=== PATIENT | female | born 1960 | race Two or more races ===

== ENCOUNTER 2017-08-22 11:58 | Inpatient (IN) | payer BC, OTHER ==
[~2017-08-22] VITALS: Ht 165.1 cm; Wt 77.2 kg
[2017-08-22] MEDS ORDERED: ALBUTEROL SULF 2.5 MG/0.5ML(0.5%) NEB SOLN NEB ONE (12:15)
[2017-08-22] MEDS ORDERED: IPRATROPIUM BROM 0.5 MG/2.5ML INH SOL NEB ONE (12:15)
[2017-08-22] MEDS ORDERED: methylPREDNISolone SOD SUCC 125 MG/2 ML VL IV ONE ×2 (12:15)
[2017-08-22 13:33] LABS: Basophils # (auto) 0 uL; Basophils % (auto) 0.3 % (0.0-2.0); Eosinophils # (auto) 0.1 uL; Hematocrit 46.6 % (36.0-46.0); Hemoglobin 15.8 g/dL (12.2-16.2); Lymphocytes # (auto) 2.4 uL; Lymphocytes % (auto) 23.7 % (10.0-50.0); Mean Corpuscular Hemoglobin 31.3 pg (28.0-32.0); Mean Corpuscular Hgb Conc. 33.9 g/dL (32.0-36.0); Mean Corpuscular Volume 92.5 fL (80.0-100.0); Monocytes # (auto) 0.7 uL; Monocytes % (auto) 6.6 % (0.0-12.0); Neutrophils # (auto) 7.1 uL; Neutrophils % (auto) 68.4 % (37.0-80.0); Nucleated Red Blood Cells % 0.1 %; Platelet Count (auto) 172 10^3/uL (140-450); Red Blood Cells 5.03 10^6/uL (4.0-5.20); Red Cell Distribution Width 13.5 % (11.8-14.3); White Blood Cell 10.3 10^3/uL (4.4-10.8)
[2017-08-22 13:57] LABS: Alanine Aminotransferase 14 U/L (13-56); Albumin 3.9 g/dL (3.4-5.0); Alkaline Phosphatase 71 U/L (45-117); Anion Gap 6 (5-15); Aspartate Aminotransferase 11 U/L (15-37); Bilirubin, Total 0.5 mg/dL (0.2-1.0); Blood Urea Nitrogen 10 mg/dL (7-18); Calcium 9.2 mg/dL (8.5-10.1); Carbon Dioxide 29 mmol/L (21-32); Chloride 107 mmol/L (98-107); GFR African American 90 mL/min; GFR Non-African American 75 mL/min; Glucose 119 mg/dL (74-106); Magnesium 2.3 mg/dL (1.6-2.6); Potassium 3.6 mmol/L (3.5-5.1); Sodium 142 mmol/L (136-145); Total Protein 7.7 g/dL (6.4-8.2)
[2017-08-22 13:58] LABS: Lactic Acid w/Reflex 2.1 mmol/L (0.4-2.0)
[2017-08-22] MEDS ORDERED: ACETAMINOPHEN 500 MG TAB PO PRN (15:30)
[2017-08-22] MEDS ORDERED: NITROGLYCERIN 0.4 MG SL TAB SL PRN (15:30)
[2017-08-22] MEDS ORDERED: TEMAZEPAM 15 MG CAP PO PRN (15:30)
[2017-08-22] MEDS ORDERED: DOXYCYCLINE 100MG/250ML 250 ML IV SCH (15:30)
[2017-08-22] MEDS ORDERED: LORazepam 0.5 MG TAB PO PRN (15:30)
[2017-08-22] MEDS ORDERED: MORPHINE SULFATE 8mg/ml INJ SDV IV PRN ×2 (15:30)
[2017-08-22] MEDS ORDERED: HYDROcodone-ACET 5/325MG TAB PO PRN (15:30)
[2017-08-22] MEDS ORDERED: PROMETHAZINE HCL 25 MG/ML 1ML IV PRN (15:30)
[2017-08-22] MEDS ORDERED: ALBUTEROL SULF 2.5 MG/0.5ML(0.5%) NEB SOLN NEB PRN (15:30)
[2017-08-22] MEDS ORDERED: LACTULOSE 20Gm/30ML SOLN PO PRN (15:30)
[2017-08-22] MEDS: IPRATROPIUM BROM 0.5 MG/2.5ML INH SOL NEB SCH (18:45)
[2017-08-22] MEDS: ALBUTEROL SULF 2.5 MG/0.5ML(0.5%) NEB SOLN NEB SCH (18:45)
[2017-08-22] MEDS: SODIUM CHLORIDE 0.9% 1,000 ML IV SCH (20:37)
[2017-08-22] MEDS: methylPREDNISolone SOD SUCC 40 MG/ML VL IV SCH (20:37)
[2017-08-22 20:50] VITALS: BP 125/76
[2017-08-22 21:22] VITALS: BP 96/56
[2017-08-22 22:54] LABS: Urine Bacteria FEW /hpf (None Seen); Urine Blood TRACE /uL (Negative); Urine Mucus FEW (None Seen); Urine WBC 7 /hpf (0 - 5)
[2017-08-23] MEDS: methylPREDNISolone SOD SUCC 40 MG/ML VL IV SCH ×3 (00:11→11:04)
[2017-08-23] MEDS: ALBUTEROL SULF 2.5 MG/0.5ML(0.5%) NEB SOLN NEB SCH ×3 (00:30→11:43)
[2017-08-23] MEDS: IPRATROPIUM BROM 0.5 MG/2.5ML INH SOL NEB SCH ×3 (00:30→11:43)
[2017-08-23] MEDS: SODIUM CHLORIDE 0.9% 1,000 ML IV SCH (04:40)
[2017-08-23 05:19] VITALS: BP 106/71
[2017-08-23 08:00] VITALS: BP 97/58
[2017-08-23] MEDS ORDERED: DOXYCYCLINE 100MG/250ML 250 ML IV SCH (08:00)
[2017-08-23] MEDS ORDERED: ENOXAPARIN SOD 60 MG/0.6 ML SYRINGE SC SCH (10:00)
[2017-08-23 12:00] VITALS: BP 112/59
[2017-08-23 14:45] VITALS: BP 112/59
== END 2017-08-23 15:15 | disposition home or self-care (01) | DRG 192 ==
LOC: ER 12:09 → TELE 12:10 → TELE-WESTW 20:53
PROVIDERS: ADMIT Internal Medicine; ATTEND Internal Medicine
DX: J44.1 Chronic obstructive pulmonary disease with (acute) exacerbation (principal); R13.10 Dysphagia, unspecified; K59.00 Constipation, unspecified; G47.00 Insomnia, unspecified; F41.9 Anxiety disorder, unspecified; F17.210 Nicotine dependence, cigarettes, uncomplicated; Z82.49 Family history of ischemic heart disease and other diseases of the circulatory system; Z88.1 Allergy status to other antibiotic agents
CPT/HCPCS: 36415; 71046; 80053; 81001; 83605; 83735; 83880; 84484; 85025; 87040; 93005; 94640; 94761; 96365; 96375; J3490

== ENCOUNTER 2023-11-08 18:47 | Inpatient (IN) | payer OTHER, MEDICARE ==
[~2023-11-08] VITALS: Ht 160 cm; Wt 71.0 kg
[2023-11-08] MEDS: ALBUTEROL SULF 2.5 MG/0.5ML(0.5%) NEB SOLN NEB ONE (19:15)
[2023-11-08 19:36] LABS: Basophils # (auto) 0 10 ^3/uL (0-0.2); Basophils % (auto) 0.4 % (0.0-2.0); Eosinophils # (auto) 0 10 ^3/uL (0-0.8); Eosinophils % (auto) 0.1 % (0.0-7.0); Hematocrit 45.6 % (36.0-46.0); Hemoglobin 15.3 g/dL (12.2-16.2); Lymphocytes # (auto) 1.2 10 ^3/uL (0.4-5.4); Lymphocytes % (auto) 29.3 % (10.0-50.0); Mean Corpuscular Hemoglobin 31.3 pg (28.0-32.0); Mean Corpuscular Hgb Conc. 33.6 g/dL (32.0-36.0); Mean Corpuscular Volume 93.1 fL (80.0-100.0); Monocytes # (auto) 0.5 10 ^3/uL (0-1.3); Monocytes % (auto) 11.6 % (0.0-12.0); Neutrophils # (auto) 2.4 10 ^3/uL (1.6-8.6); Neutrophils % (auto) 58.6 % (37.0-80.0); Nucleated Red Blood Cells % 0.3 %; Platelet Count (auto) 97 10^3/uL (140-450); Red Blood Cells 4.89 10^6/uL (4.0-5.20); Red Cell Distribution Width 14.4 % (11.8-14.3); White Blood Cell 4.1 10^3/uL (4.4-10.8)
[2023-11-08 20:17] LABS: Alanine Aminotransferase 13 U/L (7-40); Alkaline Phosphatase 61 U/L (46-116); Anion Gap 4 (5-15); Aspartate Aminotransferase 15 U/L (13-40); BUN/Creatinine Ratio 10.3 (10.0-20.0); Bilirubin, Total 0.4 mg/dL (0.2-1.0); Blood Urea Nitrogen 7 mg/dL (9-23); Calcium 8.9 mg/dL (8.7-10.4); Carbon Dioxide 27 mmol/L (20-30); Chloride 107 mmol/L (98-107); Glucose 91 mg/dL (74-106); Potassium 4.1 mmol/L (3.5-5.1); Sodium 138 mmol/L (136-145); Total Protein 6.4 g/dL (5.7-8.2)
[2023-11-08 20:51] VITALS: PULSE 75; RESP 26; O2SAT 92
[2023-11-08] MEDS: DexAMETHasone SOD PHOS 10MG/1ML VIAL INJ IM ONE (20:59)
[2023-11-08 22:11] LABS: COVID19 ANTIGEN SOFIA FIA POSITIVE (NEGATIVE)
[2023-11-08] MEDS: AZITHROMYCIN 500MG/ 250ML 250 ML IV ONE (22:59)
[2023-11-08] MEDS ORDERED: ONDANSETRON HCL 4 MG/2 ML VIAL IV PRN (23:15)
[2023-11-08] MEDS ORDERED: TEMAZEPAM 15 MG CAP PO PRN (23:15)
[2023-11-08] MEDS ORDERED: REMDESIVIR PER PHARMACY 0 ML IV SCH (23:15)
[2023-11-08] MEDS ORDERED: ACETAMINOPHEN 500 MG TAB PO PRN (23:15)
[2023-11-08] MEDS ORDERED: NITROGLYCERIN 0.4 MG SL TAB SL PRN (23:15)
[2023-11-08] MEDS ORDERED: MORPHINE SULFATE INJ 2 MG/ml SYRG IV PRN (23:15)
[2023-11-08 23:49] LABS: CRP High Sensitivity 2.09 mg/dL (<1.0)
[2023-11-09] VITALS (12 sets, daily range): BP systolic 99–124; BP diastolic 53–70; PULSE 75–89; RESP 16–20; TEMP 97.4–98.9; O2SAT 90–100
[2023-11-09 01:25] LABS: Urine Bacteria None Seen /hpf (None Seen)
[2023-11-09 01:35] LABS: Urine Blood Negative /uL (Negative); Urine Clarity Clear (Clear); Urine Color Yellow (Yellow); Urine Mucus FEW (None Seen); Urine Protein, UAD Negative (Negative); Urine Specific Gravity 1.016 (1.001-1.035); Urine Urobilinogen Normal (Negative); Urine WBC 1 /hpf (0 - 5); Urine pH 5.5 (5.0-9.0)
[2023-11-09] MEDS ORDERED: ALBU0.084 IN (04:18)
[2023-11-09] MEDS ORDERED: TIOT1AER IN (04:18)
[2023-11-09 09:34] LABS: Basophils # (auto) 0 10 ^3/uL (0-0.2); Eosinophils # (auto) 0 10 ^3/uL (0-0.8); Lymphocytes # (auto) 0.4 10 ^3/uL (0.4-5.4); Monocytes # (auto) 0.1 10 ^3/uL (0-1.3); Nucleated Red Blood Cells % 0.1 %
[2023-11-09 09:36] LABS: Basophils % (auto) 0.1 % (0.0-2.0); Hematocrit 45.4 % (36.0-46.0); Hemoglobin 15.3 g/dL (12.2-16.2); Lymphocytes % (auto) 28.2 % (10.0-50.0); Mean Corpuscular Hemoglobin 31.4 pg (28.0-32.0); Mean Corpuscular Hgb Conc. 33.7 g/dL (32.0-36.0); Mean Corpuscular Volume 93.2 fL (80.0-100.0); Monocytes % (auto) 5.9 % (0.0-12.0); Neutrophils # (auto) 0.9 10 ^3/uL (1.6-8.6); Neutrophils % (auto) 65.8 % (37.0-80.0); Platelet Count (auto) 95 10^3/uL (140-450); Red Blood Cells 4.88 10^6/uL (4.0-5.20); Red Cell Distribution Width 14.1 % (11.8-14.3)
[2023-11-09 09:42] LABS: Alanine Aminotransferase 11 U/L (7-40); Albumin 3.9 g/dL (3.2-4.8); Alkaline Phosphatase 62 U/L (46-116); Anion Gap 1 (5-15); Aspartate Aminotransferase 12 U/L (13-40); BUN/Creatinine Ratio 10.8 (10.0-20.0); Blood Urea Nitrogen 7 mg/dL (9-23); Calcium 9.1 mg/dL (8.7-10.4); Carbon Dioxide 30 mmol/L (20-30); Chloride 109 mmol/L (98-107); Glucose 179 mg/dL (74-106); Potassium 3.9 mmol/L (3.5-5.1); Sodium 140 mmol/L (136-145); White Blood Cell 1.4 10^3/uL (4.4-10.8)
[2023-11-09 09:44] LABS: Bilirubin, Total 0.3 mg/dL (0.2-1.0); Total Protein 6.1 g/dL (5.7-8.2)
[2023-11-09] MEDS ORDERED: ENOXAPARIN SOD 40 MG/0.4 ML SYRINGE SC SCH (10:00)
[2023-11-09] MEDS: BUDESONIDE (INHALATION) 180 MCG IH IN SCH (10:00)
[2023-11-09] MEDS: REMDESIVIR 200 MG in NS 210ml LOADING DOSE ADULT IV ONE (10:00)
[2023-11-09] MEDS: ZINC SULFATE 220mg CAP or TAB PO SCH (10:56)
[2023-11-09] MEDS: DexAMETHasone SOD PHOS 10MG/1ML VIAL INJ IV SCH (10:56)
[2023-11-09] MEDS: ASCORBIC ACID 500 MG TAB PO SCH (10:57)
[2023-11-09] MEDS: MULTIPLE VITAMIN TAB PO SCH (10:57)
[2023-11-09] MEDS: AZITHROMYCIN 500MG/ 250ML 250 ML IV SCH (16:46)
[2023-11-09] MEDS: ALBUTEROL SULF HFA 90MCG INH 200DOSE IN PRN (18:04)
[2023-11-10] VITALS (10 sets, daily range): BP systolic 99–121; BP diastolic 59–66; PULSE 67–89; RESP 16–20; TEMP 97.5–98.3; O2SAT 91–95
[2023-11-10 06:05] LABS: Basophils # (auto) 0 10 ^3/uL (0-0.2); Basophils % (auto) 0.1 % (0.0-2.0); Eosinophils # (auto) 0 10 ^3/uL (0-0.8); Hematocrit 47.8 % (36.0-46.0); Lymphocytes # (auto) 1.4 10 ^3/uL (0.4-5.4); Lymphocytes % (auto) 18.1 % (10.0-50.0); Mean Corpuscular Hemoglobin 31.3 pg (28.0-32.0); Mean Corpuscular Hgb Conc. 33.5 g/dL (32.0-36.0); Mean Corpuscular Volume 93.2 fL (80.0-100.0); Monocytes # (auto) 0.7 10 ^3/uL (0-1.3); Neutrophils # (auto) 5.5 10 ^3/uL (1.6-8.6); Neutrophils % (auto) 72.8 % (37.0-80.0); Nucleated Red Blood Cells % 0.1 %; Platelet Count (auto) 125 10^3/uL (140-450); Red Blood Cells 5.13 10^6/uL (4.0-5.20); Red Cell Distribution Width 14.3 % (11.8-14.3); White Blood Cell 7.6 10^3/uL (4.4-10.8)
[2023-11-10] MEDS: REMDESIVIR 100mg 100 MG in SODIUM CHL 0.9% 230 ML IV SCH (14:42)
[2023-11-10] MEDS: ENOXAPARIN SOD 40 MG/0.4 ML SYRINGE SC SCH (18:07)
[2023-11-11] VITALS (13 sets, daily range): BP systolic 97–119; BP diastolic 55–78; PULSE 71–88; RESP 16–20; TEMP 97.9–98.7; O2SAT 92–96
[2023-11-12] VITALS (11 sets, daily range): BP systolic 96–113; BP diastolic 57–72; PULSE 71–82; RESP 16–20; TEMP 97.5–98.8; O2SAT 3–98
[2023-11-12 06:19] LABS: Basophils # (auto) 0 10 ^3/uL (0-0.2); Basophils % (auto) 0.1 % (0.0-2.0); Eosinophils # (auto) 0 10 ^3/uL (0-0.8); Hematocrit 42.7 % (36.0-46.0); Hemoglobin 14.4 g/dL (12.2-16.2); Lymphocytes # (auto) 1.1 10 ^3/uL (0.4-5.4); Mean Corpuscular Hemoglobin 31.2 pg (28.0-32.0); Mean Corpuscular Hgb Conc. 33.9 g/dL (32.0-36.0); Mean Corpuscular Volume 92.2 fL (80.0-100.0); Monocytes # (auto) 0.6 10 ^3/uL (0-1.3); Neutrophils # (auto) 4.5 10 ^3/uL (1.6-8.6); Neutrophils % (auto) 71.9 % (37.0-80.0); Nucleated Red Blood Cells % 0.2 %; Platelet Count (auto) 159 10^3/uL (140-450); Red Blood Cells 4.63 10^6/uL (4.0-5.20); White Blood Cell 6.3 10^3/uL (4.4-10.8)
[2023-11-12 06:21] LABS: Alanine Aminotransferase 26 U/L (7-40); Albumin 3.6 g/dL (3.2-4.8); Alkaline Phosphatase 53 U/L (46-116); Anion Gap 3 (5-15); Aspartate Aminotransferase 17 U/L (13-40); BUN/Creatinine Ratio 20.3 (10.0-20.0); Blood Urea Nitrogen 12 mg/dL (9-23); Calcium 8.7 mg/dL (8.7-10.4); Carbon Dioxide 30 mmol/L (20-30); Chloride 110 mmol/L (98-107); Glucose 93 mg/dL (74-106); Potassium 4.2 mmol/L (3.5-5.1); Sodium 143 mmol/L (136-145)
[2023-11-12 06:22] LABS: Bilirubin, Total 0.3 mg/dL (0.2-1.0); Total Protein 5.6 g/dL (5.7-8.2)
[2023-11-13] VITALS (9 sets, daily range): BP systolic 91–107; BP diastolic 54–63; PULSE 67–83; RESP 14–20; TEMP 97.1–98; O2SAT 94–96
[2023-11-13] MEDS ORDERED: AZIT500T66 PO (10:58)
[2023-11-13] MEDS ORDERED: ASCO500T11 PO (10:58)
[2023-11-13] MEDS ORDERED: ZINC220C10 PO (10:59)
[2023-11-13] MEDS ORDERED: CHOL500046 PO (10:59)
== END 2023-11-13 14:07 | disposition home or self-care (01) | DRG 177 ==
LOC: EDBD 18:47 → ER 18:47 → EDUNIT# 18:47 → TELE 23:08 → TELE-EAST 11-09 03:25
PROVIDERS: ADMIT Nurse Practitioner; ATTEND Family Medicine
PROC: XW033E5 Introduction of Remdesivir Anti-infective into Peripheral Vein, Percutaneous Approach, New Technology Group 5 (ICD-10-PCS; principal; 2023-11-09)
DX: U07.1 COVID-19 (principal); J12.82 Pneumonia due to coronavirus disease 2019; J96.01 Acute respiratory failure with hypoxia; J44.1 Chronic obstructive pulmonary disease with (acute) exacerbation; J44.0 Chronic obstructive pulmonary disease with (acute) lower respiratory infection; F17.210 Nicotine dependence, cigarettes, uncomplicated; D72.819 Decreased white blood cell count, unspecified; Z88.1 Allergy status to other antibiotic agents
CPT/HCPCS: 36415; 71045; 80053; 81001; 82306; 82728; 83036; 83605; 83615; 83735; 84443; 84484; 85025; 85379; 86141; 87426; 93005; 94640; G0378; J1100

== ENCOUNTER 2023-12-03 18:54 | Inpatient (IN) | payer OTHER, MEDICARE ==
[~2023-12-03] VITALS: Ht 160 cm; Wt 58.7 kg
[~2023-12-03 18:54] MED LIST: ALBU0.084 IN; ASCO500T11 PO; AZIT500T66 PO; CHOL500046 PO; TIOT1AER IN; ZINC220C10 PO
[2023-12-03] MEDS: ALBUTEROL SULF 2.5 MG/0.5ML(0.5%) NEB SOLN NEB ONE (19:54)
[2023-12-03] MEDS: IPRATROPIUM BROM 0.5 MG/2.5ML INH SOL NEB ONE (19:54)
[2023-12-03 20:13] LABS: Basophils # (auto) 0 10 ^3/uL (0-0.2); Basophils % (auto) 0.5 % (0.0-2.0); Eosinophils # (auto) 0 10 ^3/uL (0-0.8); Eosinophils % (auto) 0.5 % (0.0-7.0); Hematocrit 42.6 % (36.0-46.0); Hemoglobin 14.4 g/dL (12.2-16.2); Lymphocytes # (auto) 1.1 10 ^3/uL (0.4-5.4); Lymphocytes % (auto) 22.7 % (10.0-50.0); Mean Corpuscular Hemoglobin 31.6 pg (28.0-32.0); Mean Corpuscular Hgb Conc. 33.8 g/dL (32.0-36.0); Mean Corpuscular Volume 93.5 fL (80.0-100.0); Monocytes # (auto) 0.4 10 ^3/uL (0-1.3); Monocytes % (auto) 9.1 % (0.0-12.0); Neutrophils # (auto) 3.1 10 ^3/uL (1.6-8.6); Neutrophils % (auto) 67.2 % (37.0-80.0); Platelet Count (auto) 154 10^3/uL (140-450); Red Blood Cells 4.56 10^6/uL (4.0-5.20); Red Cell Distribution Width 14.5 % (11.8-14.3); White Blood Cell 4.7 10^3/uL (4.4-10.8)
[2023-12-03 20:24] LABS: Alanine Aminotransferase 15 U/L (7-40); Albumin 4.1 g/dL (3.2-4.8); Alkaline Phosphatase 65 U/L (46-116); Anion Gap 8 (5-15); Aspartate Aminotransferase 14 U/L (13-40); BUN/Creatinine Ratio 13.7 (10.0-20.0); Bilirubin, Total 0.3 mg/dL (0.2-1.0); Blood Urea Nitrogen 10 mg/dL (9-23); Calcium 9.6 mg/dL (8.7-10.4); Carbon Dioxide 24 mmol/L (20-30); Chloride 111 mmol/L (98-107); Glucose 97 mg/dL (74-106); Potassium 4.3 mmol/L (3.5-5.1); Sodium 143 mmol/L (136-145)
[2023-12-04] VITALS (12 sets, daily range): BP systolic 132–144; BP diastolic 67–69; PULSE 83–95; RESP 15–22; TEMP 97.7; O2SAT 91–100
[2023-12-04] MEDS ORDERED: TEMAZEPAM 15 MG CAP PO PRN (00:30)
[2023-12-04] MEDS ORDERED: ACETAMINOPHEN 325 MG TAB PO PRN (00:30)
[2023-12-04] MEDS ORDERED: ONDANSETRON HCL 4 MG/2 ML VIAL IV PRN (00:30)
[2023-12-04] MEDS ORDERED: MORPHINE SULFATE INJ 2 MG/ml SYRG IV PRN (00:30)
[2023-12-04] MEDS ORDERED: NITROGLYCERIN 0.4 MG SL TAB SL PRN (00:30)
[2023-12-04] MEDS: levoFLOXacin 500MG 100 ML IV ONE (01:34)
[2023-12-04] MEDS: methylPREDNISolone SOD SUCC 125 MG/2 ML VL IV ONE (01:35)
[2023-12-04] MEDS: ALBUTEROL SULF 2.5 MG/0.5ML(0.5%) NEB SOLN NEB PRN (03:02)
[2023-12-04] MEDS: IPRATROPIUM BROM 0.5 MG/2.5ML INH SOL NEB PRN (03:02)
[2023-12-04 08:48] LABS: COVID19 ANTIGEN SOFIA FIA NEGATIVE (NEGATIVE)
[2023-12-04] MEDS: ENOXAPARIN SOD 40 MG/0.4 ML SYRINGE SC SCH (10:00)
[2023-12-04] MEDS: levoFLOXacin 500MG 100 ML IV SCH (10:05)
[2023-12-04] MEDS: methylPREDNISolone SOD SUCC 40 MG/ML VL IV SCH (10:05)
[2023-12-05] VITALS (17 sets, daily range): BP systolic 97–132; BP diastolic 51–78; PULSE 83–100; RESP 14–24; TEMP 97.5–98.1; O2SAT 91–97
[2023-12-05 07:05] LABS: Chloride 111 mmol/L (98-107); Potassium 4.1 mmol/L (3.5-5.1); Sodium 143 mmol/L (136-145)
[2023-12-05 07:06] LABS: Anion Gap 4 (5-15); Carbon Dioxide 28 mmol/L (20-30)
[2023-12-05 07:07] LABS: Calcium 9.6 mg/dL (8.7-10.4)
[2023-12-05 07:08] LABS: Basophils # (auto) 0 10 ^3/uL (0-0.2); Basophils % (auto) 0.1 % (0.0-2.0); Eosinophils # (auto) 0 10 ^3/uL (0-0.8); Hematocrit 42.7 % (36.0-46.0); Hemoglobin 14.8 g/dL (12.2-16.2); Lymphocytes # (auto) 0.9 10 ^3/uL (0.4-5.4); Lymphocytes % (auto) 9.4 % (10.0-50.0); Mean Corpuscular Hemoglobin 32.2 pg (28.0-32.0); Mean Corpuscular Hgb Conc. 34.6 g/dL (32.0-36.0); Mean Corpuscular Volume 93.3 fL (80.0-100.0); Monocytes # (auto) 0.4 10 ^3/uL (0-1.3); Monocytes % (auto) 3.8 % (0.0-12.0); Neutrophils # (auto) 8.6 10 ^3/uL (1.6-8.6); Neutrophils % (auto) 86.7 % (37.0-80.0); Platelet Count (auto) 186 10^3/uL (140-450); Red Blood Cells 4.58 10^6/uL (4.0-5.20); Red Cell Distribution Width 14.4 % (11.8-14.3)
[2023-12-05 07:11] LABS: Glucose 125 mg/dL (74-106)
[2023-12-05 07:12] LABS: BUN/Creatinine Ratio 18.5 (10.0-20.0); Blood Urea Nitrogen 12 mg/dL (9-23)
[2023-12-05 10:43] LABS: Base Excess 1.2 mmol/L (-2.0-3.0)
[2023-12-05 11:33] LABS: Rapid Influenza A Negative (Negative)
[2023-12-05 11:34] LABS: Rapid Influenza B Negative (Negative)
[2023-12-06] VITALS (10 sets, daily range): BP systolic 123–131; BP diastolic 69–89; PULSE 77–96; RESP 16–20; TEMP 97.3–98.6; O2SAT 91–98
[2023-12-06] MEDS ORDERED: PRE5T PO (08:03)
[2023-12-06] MEDS ORDERED: ACET-1882 PO (08:03)
[2023-12-06] MEDS ORDERED: LEVO500T91 PO ×2 (08:03→09:49)
[2023-12-06 10:40] LABS: Basophils # (auto) 0 10 ^3/uL (0-0.2); Basophils % (auto) 0.1 % (0.0-2.0); Eosinophils # (auto) 0 10 ^3/uL (0-0.8); Hematocrit 45.2 % (36.0-46.0); Hemoglobin 15.2 g/dL (12.2-16.2); Lymphocytes # (auto) 1.6 10 ^3/uL (0.4-5.4); Lymphocytes % (auto) 17.5 % (10.0-50.0); Mean Corpuscular Hemoglobin 31.6 pg (28.0-32.0); Mean Corpuscular Hgb Conc. 33.6 g/dL (32.0-36.0); Mean Corpuscular Volume 94.2 fL (80.0-100.0); Monocytes # (auto) 0.6 10 ^3/uL (0-1.3); Monocytes % (auto) 6.7 % (0.0-12.0); Neutrophils # (auto) 7.1 10 ^3/uL (1.6-8.6); Neutrophils % (auto) 75.7 % (37.0-80.0); Platelet Count (auto) 202 10^3/uL (140-450); Red Cell Distribution Width 14.7 % (11.8-14.3); White Blood Cell 9.3 10^3/uL (4.4-10.8)
[2023-12-06 10:47] LABS: Alanine Aminotransferase 18 U/L (7-40); Albumin 4.4 g/dL (3.2-4.8); Alkaline Phosphatase 61 U/L (46-116); Anion Gap 3 (5-15); Aspartate Aminotransferase 12 U/L (13-40); BUN/Creatinine Ratio 23.9 (10.0-20.0); Blood Urea Nitrogen 17 mg/dL (9-23); Calcium 9.9 mg/dL (8.7-10.4); Carbon Dioxide 32 mmol/L (20-30); Chloride 108 mmol/L (98-107); Glucose 118 mg/dL (74-106); Potassium 3.8 mmol/L (3.5-5.1); Sodium 143 mmol/L (136-145)
[2023-12-06 10:48] LABS: Bilirubin, Total 0.4 mg/dL (0.2-1.0); Total Protein 6.7 g/dL (5.7-8.2)
== END 2023-12-06 19:00 | disposition home or self-care (01) | DRG 177 ==
LOC: ER 18:54 → EDBD 18:54 → TELE 12-04 00:28 → TELE-EAST 12-04 18:38
PROVIDERS: ADMIT Internal Medicine Pulmonary Disease; ATTEND Internal Medicine Pulmonary Disease
DX: J15.69 Pneumonia due to other Gram-negative bacteria (principal); J96.01 Acute respiratory failure with hypoxia; E44.1 Mild protein-calorie malnutrition; J44.1 Chronic obstructive pulmonary disease with (acute) exacerbation; J44.0 Chronic obstructive pulmonary disease with (acute) lower respiratory infection; J15.9 Unspecified bacterial pneumonia; Z20.822 Contact with and (suspected) exposure to COVID-19; F17.210 Nicotine dependence, cigarettes, uncomplicated; Z88.1 Allergy status to other antibiotic agents; Z68.22 Body mass index [BMI] 22.0-22.9, adult
CPT/HCPCS: 36415; 36600; 71045; 80048; 80053; 82805; 83880; 84484; 85025; 85379; 87070; 87081; 87205; 87426; 87804; 93005; 94640; 96365; 96366; 96375; 99291; G0378; J1956

== ENCOUNTER 2024-05-19 15:23 | Emergency (ER) | payer OTHER, MEDICARE ==
[~2024-05-19] VITALS: Ht 160 cm; Wt 67.9 kg
[~2024-05-19 15:23] MED LIST changes: +ACET-1882 PO; -AZIT500T66 PO; +LEVO500T91 PO; +PRE5T PO
--- NOTE | 2024-05-19 16:29 | ED.PDOC ---
SOB-HPI HPI Comments 64-year-old female with past medical history pertinent for COPD, presents to ED for shortness of breath x3 days, associated with intermittent cough it is around her. Patient does report that her cough was productive of yellow phlegm. She denies any fever, chills, nausea, vomiting, chest pain, dizziness, numbness, tingling. She does report that she went to urgent care earlier today where her oxygen level was 87%. Patient states that she does have home oxygen homeless needed. She states that her oxygen level at home is usually between 90-94%. She also reports that she has been having increased shortness of breath with exertion. She denies any recent sick contacts. Patient does report history of pneumonia in the past requiring hospitalization. 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 Family History Family History: No family hx of HTN Social History Smoker: Cigarettes, Greater Than 1 Pack/Day Alcohol: Rarely Drugs: Denies Drug Use Lives In: Home Constitutional: denies: chills, diaphoresis, fatigue, fever, malaise, sweats, weakness, others EENTM: denies: blurred vision, double vision, ear bleeding, ear discharge, ear drainage, ear pain, ear ringing, eye pain, eye redness, hearing loss, mouth pain, mouth swelling, nasal discharge, nose bleeding, nose congestion, nose pain, photophobia, tearing, throat pain, throat swelling, voice changes, others Respiratory: reports: cough, SOB at rest, shortness of breath, SOB with excertion; denies: hemoptysis, orthopnea, stridor, wheezing, others Cardiovascular: denies: chest pain, dizzy spells, diaphoresis, Dyspnea on exertion, edema, irregular heart beat, left arm pain, lightheadedness, palpitations, PND, syncope, others Gastrointestinal: denies: abdomen distended, abdominal pain, blood streaked bowels, constipated, diarrhea, dysphagia, difficulty swallowing, hematemesis, melena, nausea, poor appetite, poor fluid intake, rectal bleeding, rectal pain, vomiting, others Genitourinary: denies: abnormal vagina bleeding, burning, dyspareunia, dysuria, flank pain, frequency, hematuria, incontinence, pain, , vagina discharge, urgency, others Neurological: denies: dizziness, fainting, headache, left sided numbness, left sided weakness, numbness, paresthesia, pre-existing deficit, right sided numbness, right sided weakness, seizure, speech problems, tingling, tremors, weakness, others Musculoskeletal: denies: back pain, gout, joint pain, joint swelling, muscle pain, muscle stiffness, neck pain, others Integumetry: denies: bruises, change in color, change in hair/nails, dryness, laceration, lesions, lumps, rash, wounds, others Allergic/Immunocompromised: denies: Difficulty Healing, Frequent Infections, Hives, Itching, others Hematologic/Lymphatic: denies: anemia, blood clots, easy bleeding, easy bruising, swollen glands, others Endocrine: denies: excessive hunger, excessive sweating, excessive thirst, excessive urination, flushing, intolerance to cold, intolerance to heat, unexplained weight gain, unexplained weight loss, others Psychiatric: denies: anxiety, bipolar disorder, depression, hopeless, panic disorder, schizophrenia, sleepless, suicidal, others All Other Systems: Reviewed and Negative Physical Exam General Appearance: No Apparent Distress, Normal HEENT: Normal ENT Inspection, Pharynx Normal, TMs Normal Neck: Full Range of Motion, Non-Tender, Normal, Normal Inspection Respiratory: Chest Non-Tender, No Accessory Muscle Use, No Respiratory Distress, Rales (Mild rales and wheezing heard in the upper lung torres.), Other (Mildly decreased breath sounds.) Cardiovascular: No Edema, No JVD, No Murmur, No Gallop, Normal Peripheral Pulses, Regular Rate/Rhythm Breast Exam: Deferred Gastrointestinal: No Organomegaly, Non Tender, No Pulsatile Mass, Normal Bowel Sounds, Soft Genitalia: Deferred Pelvic: Deferred Rectal: Deferred Extremities: No calf tenderness, Normal capillary refill, Normal inspection, Normal range of motion, Non-tender, No pedal edema Musculoskeletal : Apperance: Normal Neurologic: Alert, 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 Was a procedure done?: No Differential Dx Differential Diagnosis: CHF, COPD, Pneumonia, Respiratory Distress, URI X-Ray, Labs, Meds, VS Vital Signs Date Time Temp Pulse Resp B/P (MAP) Pulse Ox O2 Delivery O2 Flow Rate FiO2 05/19/24 17:11 97.3 100 19 120/64 (82) 92 97.3 05/19/24 17:11 100 19 92 Nasal Cannula* 2 28 05/19/24 16:46 16 95 Nasal Cannula* 2 05/19/24 16:07 98.2 99 20 130/74 (92) 96 05/19/24 16:07 20 96 Nasal Cannula* 2 05/19/24 15:57 82 Lab Test 05/19/24 16:29 05/19/24 16:10 Range/Units White Blood Count 18.1 H 4.4-10.8 10^3/uL Red Blood Count 4.84 4.0-5.20 10^6/uL Hemoglobin 14.8 12.2-16.2 g/dL Hematocrit 44.7 36.0-46.0 % Mean Corpuscular Volume 92.4 80.0-100.0 fL Mean Corpuscular Hemoglobin 30.5 28.0-32.0 pg Mean Corpuscular Hemoglobin Concent 33.0 32.0-36.0 g/dL Red Cell Distribution Width 13.7 11.8-14.3 % Platelet Count 204 140-450 10^3/uL Mean Platelet Volume 9.3 6.9-10.8 fL Neutrophils (%) (Auto) 85.3 H 37.0-80.0 % Lymphocytes (%) (Auto) 6.8 L 10.0-50.0 % Monocytes (%) (Auto) 7.5 0.0-12.0 % Eosinophils (%) (Auto) 0.1 0.0-7.0 % Basophils (%) (Auto) 0.3 0.0-2.0 % Neutrophils # (Auto) 15.4 H 1.6-8.6 10 ^3/uL Lymphocytes # (Auto) 1.2 0.4-5.4 10 ^3/uL Monocytes # (Auto) 1.4 H 0-1.3 10 ^3/uL Eosinophils # (Auto) 0 0-0.8 10 ^3/uL Basophils # (Auto) 0.1 0-0.2 10 ^3/uL Nucleated Red Blood Cells 0.0 % Sodium Level 138 136-145 mmol/L Potassium Level 3.9 3.5-5.1 mmol/L Chloride Level 103 98-107 mmol/L Carbon Dioxide Level 26 20-31 mmol/L Anion Gap 9 5-15 Blood Urea Nitrogen 12 9-23 mg/dL Creatinine 0.76 0.550-1.02 mg/dL Glomerular Filtration Rate Calc 86 >90 mL/min BUN/Creatinine Ratio 15.8 10.0-20.0 Serum Glucose 97 74-106 mg/dL Calcium Level 9.9 8.7-10.4 mg/dL Total Bilirubin 0.7 0.2-1.0 mg/dL Aspartate Amino Transferase (AST) 22 13-40 U/L Alanine Aminotransferase (ALT) 18 7-40 U/L Alkaline Phosphatase 70 46-116 U/L B-Type Natriuretic Peptide 35.24 0-100 pg/mL Total Protein 6.6 5.7-8.2 g/dL Albumin 4.4 3.2-4.8 g/dL Influenza Type A Antigen Negative Negative Influenza Type B Antigen Negative Negative SARS-CoV-2 Antigen (Rapid) Negative NEGATIVE Current Medications Medications (Trade) Dose Ordered Sig/Nita Route Start Time Stop Time Status Last Admin Albuterol (Ventolin Medneb) 5 mg ONCE ONCE NEB 05/19/24 16:30 05/19/24 16:40 DC 05/19/24 16:46 Ipratropium Prole (Atrovent Medneb) 0.5 mg ONCE ONCE NEB 05/19/24 16:30 05/19/24 16:40 DC 05/19/24 16:46 Dexamethasone Sodium Phosphate (Decadron Injection) 10 mg ONCE ONCE PO 05/19/24 16:30 05/19/24 16:40 DC 05/19/24 17:07 X-Ray, Labs, Meds, VS Comment CXR IMPRESSION: 1. Minimal atelectasis/ scarring in the lower lungs. A trace right pleural effusion is difficult to exclude. No evidence of pneumonia. 2. Flattening of the hemidiaphragms. This is nonspecific but can be seen with emphysema. 3. Nodular density of the left lower lung is favored to represent a nipple shadow. May consider repeat exam with nipple markers if clinically indicated. 4. Mild age-indeterminate compression deformities involving 2 vertebrae near the thoracolumbar junction. MDM: Patient with history as above presented with shortness breath. History obtained from patient. Patient was nontoxic, stable, afebrile, ambulatory, no acute distress. Exam as above. Labs reviewed. CBC showed elevated white blood cell count at 18.1. CMP did not show any electrolyte abnormalities. BNP within normal limits. Influenza and COVID-19 were negative. Independently reviewed imaging. Chest x-ray did not show acute consolidation. Reviewed external records. All findings were discussed with the patient. Differential diagnosis considered. Overall presentation is consistent with COPD exacerbation. Low suspicion for pneumonia, respiratory failure, sepsis Patient was treated with albuterol, ipratropium, dexamethasone with improvement in symptoms. I had a discussion with patient regarding admitting the patient for monitoring and treatment for COPD exacerbation, however patient states that she feels much better and would like to try outpatient treatment. She states that she has oxygen at home as needed. Patient reported that she will return to the ED immediately for any worsening shortness of breath. Patient was reevaluated and vital signs were reviewed. Consideration was given for admission, but the patient was stable for outpatient management. Prescribed antibiotics, steroids, albuterol nebulizer for COPD exacerbation Disposition: Discussed the need to follow up diagnostics, including incidental findings. Discharged the patient with instructions to obtain outpatient follow up in 1-2 days of today's symptoms and findings, with strict return precautions if patient develops new or worsening symptoms. This medical document was created using the virtual [employer] dictation system. Although this document has been carefully reviewed, there may still be some phonetic and typographical errors, which are due to imperfections of the software program, and do not reflect any compromise in the patient's medical care. Time of 1ST Reevaluation: 17:31 Reevaluation 1ST: Improved Patient Education/Counseling: Diagnosis, Treatment, Prognosis, Need For Follow Up Family Education/Counseling: No Family Present Departure 1 Departure Time of Disposition: 17:44 Impression: Primary Impression: COPD exacerbation Disposition: 01 HOME / SELF CARE / HOMELESS Condition: Fair e-Prescriptions Albuterol Sulfate (Albuterol Sulfate) 0.083 % Neb 1 VIAL NEB Q4HPRN, #50 VIAL Prov: PORFIRIO ROMO PAC 05/19/24 Prednisone (Prednisone) 20 Mg Tab 40 MG PO DAILY for 5 Days, #10 TAB Prov: PORFIRIO ROMO PAC 05/19/24 Azithromycin (Azithromycin) 250 Mg Tab 250 MG PO DAILY MDD 500 for 5 Days, #6 TAB 0 Refills 2 TABLETS ORALLY ON DAY ONE, THEN 1 TABLET ORALLY DAILY FOR 4 DAYS Prov: PORFIRIO ROMO 05/19/24 Critical Care Note Critical Care Time?: No Stability Stability form required: No Heart Score Heart Score: Heart Score Response (Comments) Value History N/A 0 EKG N/A 0 Age N/A 0 Risk Factors N/A 0 Troponin N/A 0 Total 0 PORFIRIO ROMO May 19, 2024 16:29
[2024-05-19 16:38] LABS: Basophils # (auto) 0.1 10 ^3/uL (0-0.2); Basophils % (auto) 0.3 % (0.0-2.0); Eosinophils # (auto) 0 10 ^3/uL (0-0.8); Eosinophils % (auto) 0.1 % (0.0-7.0); Hematocrit 44.7 % (36.0-46.0); Hemoglobin 14.8 g/dL (12.2-16.2); Lymphocytes # (auto) 1.2 10 ^3/uL (0.4-5.4); Lymphocytes % (auto) 6.8 % (10.0-50.0); Mean Corpuscular Hemoglobin 30.5 pg (28.0-32.0); Mean Corpuscular Volume 92.4 fL (80.0-100.0); Monocytes # (auto) 1.4 10 ^3/uL (0-1.3); Monocytes % (auto) 7.5 % (0.0-12.0); Neutrophils # (auto) 15.4 10 ^3/uL (1.6-8.6); Neutrophils % (auto) 85.3 % (37.0-80.0); Platelet Count (auto) 204 10^3/uL (140-450); Red Blood Cells 4.84 10^6/uL (4.0-5.20); Red Cell Distribution Width 13.7 % (11.8-14.3); White Blood Cell 18.1 10^3/uL (4.4-10.8)
--- NOTE | 2024-05-19 16:45 | ECG ---
[facility] Test Date: 2024-05-19 Test Time: 15:57:08 Pat Name: SAHRA SAUNDERS Department: ER Room: Gender: F Plumbing Technician: PO : 1960 Requested By: EMERGENCY EMERGENCY Order Number: [id number] Reading MD: Kvng Celestin Measurements Intervals [place] Rate: 92 P: 81 MS: 138 QRS: 86 QRSD: 92 T: 70 QT: 349 QTc: 432 Interpretive Statements Sinus rhythm Borderline right axis deviation Electronically Signed On 05-25-2024 16:57:37 PST by Kvng Celestin Please click the below link to view image of tracing.
[2024-05-19] MEDS: IPRATROPIUM BROM 0.5 MG/2.5ML INH SOL NEB ONE (16:46)
[2024-05-19] MEDS: ALBUTEROL SULF 2.5 MG/0.5ML(0.5%) NEB SOLN NEB ONE (16:46)
[2024-05-19] MEDS: IPRATROPIUM BROM 0.5 MG/2.5ML INH SOL ONE (16:49)
[2024-05-19] MEDS: ALBUTEROL SULF 2.5 MG/0.5ML(0.5%) NEB SOLN ONE (16:50)
[2024-05-19 16:54] LABS: Alanine Aminotransferase 18 U/L (7-40); Albumin 4.4 g/dL (3.2-4.8); Alkaline Phosphatase 70 U/L (46-116); Anion Gap 9 (5-15); Aspartate Aminotransferase 22 U/L (13-40); BUN/Creatinine Ratio 15.8 (10.0-20.0); Bilirubin, Total 0.7 mg/dL (0.2-1.0); Blood Urea Nitrogen 12 mg/dL (9-23); Calcium 9.9 mg/dL (8.7-10.4); Carbon Dioxide 26 mmol/L (20-31); Chloride 103 mmol/L (98-107); Glucose 97 mg/dL (74-106); Potassium 3.9 mmol/L (3.5-5.1); Sodium 138 mmol/L (136-145); Total Protein 6.6 g/dL (5.7-8.2)
--- NOTE | 2024-05-19 17:03 | DVH ---
CHEST RADIOGRAPH Indication: R/o pneumonia Technique: Frontal and lateral view of the chest was obtained Comparison: None FINDINGS: Lines and Tubes: None Lungs: Mild linear densities in the lower lung. No focal airspace consolidations. There is a nodular 1.4 cm opacity over the left lower lung. Pleura: Minimal hazy opacity at the right costophrenic sulcus. No pneumothorax. Cardiomediastinal contours: No cardiomegaly. Flattening of the hemidiaphragms. Bones: Mild age-indeterminate compression deformities involving 2 vertebrae near the thoracolumbar ju nction (possibly T12 and L1). IMPRESSION: 1. Minimal atelectasis/ scarring in the lower lungs. A trace right pleural effusion is difficult to exclude. No evidence of pneumonia. 2. Flattening of the hemidiaphragms. This is nonspecific but can be seen with emphysema. 3. Nodular density of the left lower lung is favored to represent a nipple shadow. May consider repea t exam with nipple markers if clinically indicated. 4. Mild age-indeterminate compression deformities involving 2 vertebrae near the thoracolumbar juncti on.
[2024-05-19] MEDS: DexAMETHasone SOD PHOS 10MG/1ML VIAL INJ PO ONE (17:07)
[2024-05-19 17:11] VITALS: BP 120/64; PULSE 100; RESP 19; TEMP 97.3; O2SAT 92
[2024-05-19 17:26] LABS: COVID19 ANTIGEN SOFIA FIA NEGATIVE (NEGATIVE)
[2024-05-19 17:27] LABS: Rapid Influenza A Negative (Negative); Rapid Influenza B Negative (Negative)
[2024-05-19] MEDS ORDERED: ALBU0.084 NEB (17:44)
[2024-05-19] MEDS ORDERED: AZIT-43 PO (17:44)
[2024-05-19] MEDS ORDERED: PRED20TA2 PO (17:44)
== END 2024-05-19 18:23 | disposition home or self-care (01) ==
LOC: ER 15:23
DX: J44.1 Chronic obstructive pulmonary disease with (acute) exacerbation (principal); F17.210 Nicotine dependence, cigarettes, uncomplicated; Z20.822 Contact with and (suspected) exposure to COVID-19
CPT/HCPCS: 36415; 71046; 80053; 83880; 85025; 87426; 87804; 93005; 94640; 99285; J1100